=== PATIENT | male | born 1960 | race Caucasian/White ===

== ENCOUNTER 2019-01-25 00:26 | Observation (INO) ==
[2019-01-25] MEDS ORDERED: ACETAMINOPHEN 500 MG TABLET PO STA (02:02)
[2019-01-25 02:58] LABS: Basophils # 0.1 10*3/uL (0.0-0.2); Basophils % 0.6 % (0.0-0.8); Eosinophils # 0.2 10*3/uL (0.0-0.87); Eosinophils % 1.3 % (0.00-10.9); Hematocrit 36.6 VOL% (42.0-52.0); Hemoglobin 11.9 GM/DL (14.0-18.0); Immature Granulocytes % 0.4 %; Immature Granulocytes Absolute 0.06 #; Lymphocytes # 3.9 10*3/uL (1.4-4.0); Lymphocytes % 28.9 % (21.2-54.2); Mean Corpuscular HGB Conc 32.5 GM/DL (32-36); Mean Corpuscular Volume 85.1 FL (87-102); Monocytes % 8.7 % (1.7-12.7); Neutrophils % 60.1 % (38.7-73.9); Platelet Count 214 T/CUMM (130-400); Red Cell Distribution Width 13.8 % (9.3-17.3); White Blood Count 13.4 T/CUMM (4-12)
[2019-01-25 03:14] LABS: Alanine Aminotransferase 23 U/L (16-61); Albumin 3.7 G/DL (3.4-5.0); Alkaline Phosphatase 60 U/L (45-117); Aspartate Amino Transferase 18 U/L (0-37); Blood Urea Nitrogen 21 MG/DL (7-18); Calcium 8.5 MG/DL (8.5-10.1); Glucose 95 MG/DL (74-106); Osmolality,Calculated 279.5 MOS/KG (273-304); Total Protein 6.9 G/DL (6.4-8.3)
[2019-01-25 03:41] LABS: Barbiturates Screen,Urine Negative (Negative); Benzodiazepines Screen,Urine Negative (Negative); Cannabinoid Screen,Urine Negative (Negative); Opiate Screen,Urine Negative (Negative); Phencyclidine Screen,Urine Negative (Negative)
[2019-01-25] MEDS ORDERED: KETOROLAC 30 MG/1 ML VIAL IM STA (04:14)
[2019-01-25 04:38] LABS: Apearance,Urine CLEAR (Clear); Bilirubin,Urine Negative (Negative); Blood, Urine Small mg/dL (Negative); Glucose,Urine (UA) 50 mg/dL (Negative); Hyaline Casts,Urine 7 /LPF (0-3); Ketones,Urine 5 mg/dL (Negative); Mucus,Urine Occasional /LPF (Occasional); Nitrite,Urine Negative (Negative); Protein,Urine Negative; RBC,Urine <1 /HPF (0-4); Squamous Epithelial Cell,Urine Occasional /HPF (0-10); Urine Color Yellow (Yellow); Urine Specific Gravity 1.016 (1.001-1.035); WBC,Urine 1 /HPF (0-6)
[2019-01-25] MEDS ORDERED: IBUPROFEN 600 MG TABLET PO STA ×2 (09:05→15:25)
[2019-01-25] MEDS ORDERED: IBUPROFEN 600 MG TABLET ONE ×2 (09:06→15:27)
[2019-01-25] MEDS ORDERED: ZIPRASIDONE 20 MG/1 ML VIAL IM STA (17:54)
[2019-01-25] MEDS ORDERED: ACETAMINOPHEN 325 MG TABLET PO PRN (18:45)
[2019-01-25] MEDS ORDERED: ONDANSETRON 4 MG/2 ML VIAL IV PRN (18:45)
[2019-01-25] MEDS ORDERED: GLUCAGON 1 MG VIAL IM PRN (18:49)
[2019-01-25] MEDS ORDERED: DEXTROSE 50% 25 GM/50 ML SYRINGE IV PRN (18:49)
[2019-01-25] MEDS ORDERED: ENOXAPARIN 40 MG/0.4 ML SYRINGE SUBCUT SCH (21:00)
[2019-01-25] MEDS: INSULIN REGULAR 100 UNIT/ML SUBCUT SCH (21:55)
[2019-01-26 05:19] LABS: Basophils # 0.1 10*3/uL (0.0-0.2); Basophils % 1.1 % (0.0-0.8); Eosinophils # 0.3 10*3/uL (0.0-0.87); Eosinophils % 3.5 % (0.00-10.9); Hematocrit 36.6 VOL% (42.0-52.0); Hemoglobin 11.9 GM/DL (14.0-18.0); Immature Granulocytes % 0.3 %; Immature Granulocytes Absolute 0.02 #; Lymphocytes # 3.4 10*3/uL (1.4-4.0); Lymphocytes % 47.8 % (21.2-54.2); Mean Corpuscular HGB Conc 32.5 GM/DL (32-36); Mean Corpuscular Volume 85.9 FL (87-102); Mean Platelet Volume 10.6 FL (9.6-12.0); Monocytes % 6.5 % (1.7-12.7); Neutrophils % 40.8 % (38.7-73.9); Platelet Count 215 T/CUMM (130-400); Red Blood Count 4.26 MC/CUMM (3.8-5.5); Red Cell Distribution Width 14.3 % (9.3-17.3); White Blood Count 7.1 T/CUMM (4-12)
[2019-01-26 05:45] LABS: Calcium 8.6 MG/DL (8.5-10.1); Osmolality,Calculated 287.8 MOS/KG (273-304)
[2019-01-26] MEDS ORDERED: PANTOPRAZOLE 40 MG TABLET PO SCH (09:00)
[2019-01-26] MEDS: INSULIN REGULAR 100 UNIT/ML SUBCUT SCH ×2 (10:53→12:05)
[2019-01-26 11:50] VITALS: BP 89/59
[2019-01-26] MEDS ORDERED: traZODone 50 MG TABLET PO SCH (21:00)
[2019-01-26] MEDS ORDERED: QUEtiapine 100 MG TABLET PO SCH (21:00)
== END 2019-01-26 16:20 ==
LOC: EDBD → EDUNIT# → N.EDINP 00:26 → N.ED 00:26 → N.5E 19:30 → N.2E 19:51
PROVIDERS: ADMIT Internal Medicine; ATTEND Internal Medicine